=== PATIENT | male | born 1995 | race Caucasian/White ===

== ENCOUNTER 2018-03-06 11:10 | Emergency (ER) | payer SELFPAY ==
[2018-03-06 11:39] VITALS: RESP 18
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
--- NOTE | 2018-03-06 12:38 | XR ---
EXAMINATION TYPE: XR foot complete LT, XR ankle complete LT DATE OF EXAM: 03/06/2018 CLINICAL HISTORY: pain TECHNIQUE: Frontal, lateral and oblique images of the left foot are obtained. COMPARISON: None. FINDINGS: Hairline fracture versus nutrient foramina base of the second metatarsal. Correlate with po int tenderness. The joint spaces appear within normal limits. The overlying soft tissue appears unr emarkable. IMPRESSION: Hairline fracture versus nutrient foramina base of the second metatarsal. Correlate with point tender ness. ICD 10 NO FRACTURE, INITIAL EVALUATION EXAMINATION TYPE: XR foot complete LT, XR ankle complete LT DATE OF EXAM: 03/06/2018 COMPARISON: NONE HISTORY: Pain TECHNIQUE: 3 views of the left ankle are submitted for evaluation. FINDINGS: No evidence for acute fracture or dislocation. Ankle mortise is intact. Soft tissues are wi thin normal limits. IMPRESSION: 1. No evidence for acute fracture.
[2018-03-06 13:21] VITALS: BP 125/66; PULSE 66; TEMP 98.1
== END 2018-03-06 13:21 | disposition home or self-care (01) ==
LOC: EC 11:10
DX: S93.402A Sprain of unspecified ligament of left ankle, initial encounter (principal); F17.200 Nicotine dependence, unspecified, uncomplicated; V27.4XXA Motorcycle driver injured in collision with fixed or stationary object in traffic accident, initial encounter; Y92.410 Unspecified street and highway as the place of occurrence of the external cause
CPT/HCPCS: 99283